=== PATIENT | male | born 1995 | race Caucasian/White ===

== ENCOUNTER → 2021-03-25 | Outpatient (CLI) | payer OTHER | LOC: ZCOL.LAB 15:33 | DX: T23.209A Burn of second degree of unspecified hand, unspecified site, initial encounter (principal) ==

== ENCOUNTER 2023-12-20 13:23 | Emergency (ER) | payer OTHER ==
[~2023-12-20] VITALS: Ht 177.8 cm; Wt 81.8 kg
[2023-12-20] MEDS ORDERED: NS 1,000 ML IV ONE ×2 (14:15→15:45)
[2023-12-20] MEDS ORDERED: fentaNYL 50 MCG/ML 2 ML VIAL IV ONE ×2 (14:15→15:00)
[2023-12-20] MEDS ORDERED: Ondansetron 4 MG/2 ML VIAL IV ONE (14:15)
[2023-12-20] MEDS ORDERED: Tdap Vaccine 0.5 ML SYRINGE IM ONE (15:30)
[2023-12-20] MEDS ORDERED: ceFAZolin 1 G in Water For Injection,Sterile 10 ML IV ONE (15:30)
[2023-12-20] MEDS ORDERED: AMOXICILLIN 8751 TAB PO (16:35)
[2023-12-20] MEDS ORDERED: NORCO 325 MG-51 TAB PO (16:36)
[2023-12-20 17:19] VITALS: BP 146/75; PULSE 72
== END 2023-12-20 17:32 | disposition home or self-care (01) ==
LOC: COL.ER 13:23
DX: S09.90XA Unspecified injury of head, initial encounter (principal); S52.572A Other intraarticular fracture of lower end of left radius, initial encounter for closed fracture; S00.03XA Contusion of scalp, initial encounter; W11.XXXA Fall on and from ladder, initial encounter
CPT/HCPCS: J0690; J2405; J2704; J3010; J7030